=== PATIENT | male | born 1955 | race Caucasian/White ===

== ENCOUNTER 2017-11-22 17:56 | Observation (INO) | payer OTHER ==
[2017-11-22 18:21] LABS: BASO % 0.5 % (0-2.0); EOS % 2.5 % (0-4.5); HEMATOCRIT 40.4 % (35.4-49); LYMPH % 35.7 % (8-40); MCH 31.6 pg (25.7-33.7); MCHC 34.6 g/dl (32.0-35.9); MEAN CELL VOLUME 91.4 fl (80-96); MEAN PLT VOLUME 9.6 fl (7.5-11.1); MONO % 7.3 % (3.8-10.2); PLATELET COUNT 174 K/MM3 (134-434); RBC 4.42 M/mm3 (4.00-5.60); RDW 12.9 % (11.9-15.9); WHITE BLOOD COUNT 6.7 K/mm3 (4.0-10.8)
--- NOTE | 2017-11-22 18:35 | PDOC ---
History of Present Illness - General History Source: Patient Exam Limitations: No Limitations - History of Present Illness Initial Comments: 11/22/17 18:58 The patient is a 62 year old male with hypertension, hyperlipidemia, diabetes, atrial fibrillation s/p ablation who presents to the ED with complaints of chest pain that began this afternoon. The patient describes a mild, dull 3/4 in severity, intermittent chest-like pressure with associated neck pain. He denies any radiating pain, numbness, tingling or palpitations. He does, however, report increased weakness stating he has decreased exercise tolerance. Denies any LOC, headache, nausea, vomiting, diarrhea, cough, SOB, or urinary symptoms. Allergies: NKDA Social: Denies any drugs, alcohol, or tobacco use. PCP: Charlee Mcleod <Ethan Gaona - Last Filed: 11/22/17 19:29> <Andres Brandt - Last Filed: 11/25/17 14:23> - General Chief Complaint: Chest Pain Stated Complaint: CHEST DISCOMFORT Time Seen by Provider: 11/22/17 18:25 Past History <Ethan Gaona - Last Filed: 11/22/17 19:29> - Past Medical History Cardiac Disorders: Yes (AFIB ABLASION) COPD: No Dementia: No Diabetes: Yes HTN: Yes Hypercholesterolemia: Yes - Surgical History Abdominal Surgery: No - Suicide/Smoking/Psychosocial Hx Smoking Status: No Smoking History: Never smoked Have you smoked in the past 12 months: No Number of Cigarettes Smoked Daily: 0 Hx Alcohol Use: Yes Drug/Substance Use Hx: No Substance Use Type: Alcohol Hx Substance Use Treatment: No <Andres Brandt - Last Filed: 11/25/17 14:23> - Past Medical History Allergies/Adverse Reactions: Allergies Allergy/AdvReac Type Severity Reaction Status Date / Time No Known Allergies Allergy Verified 11/22/17 17:57 Home Medications: Ambulatory Orders Aspirin [ASA -] 325 mg PO DAILY 02/11/12 Atenolol [Tenormin -] 25 mg PO DAILY 02/11/12 Pravastatin Na [Pravachol] 40 mg PO DAILY 02/11/12 Alfuzosin HCl [Uroxatral] 10 mg PO DAILY 11/22/17 Allopurinol [Zyloprim -] 300 mg PO DAILY 11/22/17 Glipizide [Glipizide Xl] 2.5 mg PO DAILY 11/22/17 Metformin HCl [Metformin HCl ER] 1,000 mg PO BID 11/22/17 Valsartan [Diovan] 40 mg PO DAILY #30 tablet 11/23/17 Review of Systems - Review of Systems Able to Perform ROS?: Yes Comments:: 11/22/17 18:59 A complete review of 10 out of 10 review of systems is taken and is negative apart from what is previously mentioned below and in the HPI. All Other Systems: Reviewed and Negative <Ethan Gaona - Last Filed: 11/22/17 19:29> *Physical Exam - Vital Signs Last Vital Signs Temp Pulse Resp BP Pulse Ox 52 L 18 143/83 97 11/22/17 17:57 11/22/17 17:57 11/22/17 17:57 11/22/17 17:57 - Physical Exam Comments: 11/22/17 18:59 Vitals: Triage Vital signs reviewed General Appearance: no acute distress, well nourished well developed Neck: Supple;No Nuchal rigidity Chest Wall: Nontender Cardiac: Regular rate and rhythm, no murmurs, no rubs, no gallops, Lungs: Clear to auscultation bilateral, good air movement bilaterally, Abdomen: Soft, nondistended, normal bowel sounds, nontender to palpation Extremities: Full range of motion to all extremities, no cyanosis, clubbing, or edema Skin: Warm and dry, no rashes or lesions, no petechiae Neuro: AOX3; Cranial Nerves 2-12 grossly intact, Strength intact to all extremities, Sensation intact to all extremities Psych: normal mood, normal affect <Ethan Gaona - Last Filed: 11/22/17 19:29> - Vital Signs Last Vital Signs Temp Pulse Resp BP Pulse Ox 52 L 18 143/83 97 11/22/17 17:57 11/22/17 17:57 11/22/17 17:57 11/22/17 17:57 <Andres Brandt - Last Filed: 11/25/17 14:23> Heart Score/ECG Review - ECG Impressions Comment:: 11/22/17 18:49 EKG performed at 1804. Demonstrates sinus rhythm [address] elevations, no T- wave inversions, possible Q wave lead 3 Interpreted by me. <Andres Brandt - Last Filed: 11/25/17 14:23> ED Treatment Course - LABORATORY CBC & Chemistry Diagram: 11/22/17 18:06 11/22/17 18:06 - ADDITIONAL ORDERS Additional order review: Laboratory Results 11/22/17 11/22/17 18:06 18:06 Sodium 136 Potassium 4.0 Chloride 104 Carbon Dioxide 27 Anion Gap 5 L BUN 20 H Creatinine 1.1 Creat Clearance w eGFR > 60 Random Glucose 110 H Calcium 9.6 Total Bilirubin 0.6 AST 20 ALT 28 Alkaline Phosphatase 64 Creatine Kinase 111 Troponin I < 0.03 Total Protein 6.5 Albumin 4.1 11/22/17 18:06 RBC 4.42 MCV 91.4 MCHC 34.6 RDW 12.9 MPV 9.6 Neutrophils % 54.0 Lymphocytes % 35.7 D Monocytes % 7.3 Eosinophils % 2.5 Basophils % 0.5 D <Ethan Gaona - Last Filed: 11/22/17 19:29> - LABORATORY CBC & Chemistry Diagram: 11/23/17 07:25 11/23/17 07:25 - ADDITIONAL ORDERS Additional order review: 11/22/17 18:06 RBC 4.42 MCV 91.4 MCHC 34.6 RDW 12.9 MPV 9.6 Neutrophils % 54.0 Lymphocytes % 35.7 D Monocytes % 7.3 Eosinophils % 2.5 Basophils % 0.5 D - RADIOLOGY Radiology Studies Ordered: Category Date Time Status CXRPORT [CHEST X-RAY PORTABLE*] [RAD] Stat Radiology 11/22/17 18:14 Ordered <Andres Brandt - Last Filed: 11/25/17 14:23> Medical Decision Making - Medical Decision Making 11/22/17 19:29 Phone call placed to [facility] and call was returned promptly. Case discussed. v <Ethan Gaona - Last Filed: 11/22/17 19:29> - Medical Decision Making 11/22/17 18:50 Heart Score 4, moderate risk patient given age hypertension diabetes high cholesterol with moderately concerning story We'll check EKG labs patient will require admission and cardiology consultation for further management. Dr. Blackwood to follow up labs and admit patient. <Andres Brandt - Last Filed: 11/25/17 14:23> *DC/Admit/Observation/Transfer - Attestations Scribe Attestion: 11/22/17 19:00 Documentation prepared by Ethan Gaona, acting as internist medical doctor md for Andres Brandt MD. <Ethan Gaona - Last Filed: 11/22/17 19:29> <Andres Brandt - Last Filed: 11/25/17 14:23> Diagnosis at time of Disposition: Chest pain Qualifiers: Chest pain type: unspecified Qualified Code(s): R07.9 - Chest pain, unspecified - Discharge Dispostion Disposition: HOME Condition at time of disposition: Improved
[2017-11-22 18:40] LABS: ALBUMIN 4.1 g/dl (3.5-5.0); ALK PHOS 64 U/L (32-92); ANION GAP 5 (8-16); BILIRUBIN,TOTAL 0.6 mg/dl (0.2-1.0); BLOOD UREA NITROGEN 20 mg/dl (7-18); CALCIUM 9.6 mg/dl (8.4-10.2); CHLORIDE 104 mmol/L (98-107); CO2 27 mmol/L (22-28); CREATININE 1.1 mg/dl (0.6-1.3); GLUCOSE,RANDOM 110 mg/dl (74-106); SGOT/AST 20 U/L (10-42); SGPT/ALT 28 U/L (10-40); SODIUM 136 mmol/L (136-145); TOT PROT 6.5 g/dl (6.4-8.3)
--- NOTE | 2017-11-22 19:45 | PDOC ---
*Physical Exam - Vital Signs Last Vital Signs Temp Pulse Resp BP Pulse Ox 52 L 16 146/85 98 11/22/17 19:28 11/22/17 19:28 11/22/17 19:28 11/22/17 19:28 ED Treatment Course - LABORATORY CBC & Chemistry Diagram: 11/22/17 18:06 11/22/17 18:06 - ADDITIONAL ORDERS Additional order review: Laboratory Results 11/22/17 11/22/17 18:06 18:06 Sodium 136 Potassium 4.0 Chloride 104 Carbon Dioxide 27 Anion Gap 5 L BUN 20 H Creatinine 1.1 Creat Clearance w eGFR > 60 Random Glucose 110 H Calcium 9.6 Total Bilirubin 0.6 AST 20 ALT 28 Alkaline Phosphatase 64 Creatine Kinase 111 Troponin I < 0.03 Total Protein 6.5 Albumin 4.1 11/22/17 18:06 RBC 4.42 MCV 91.4 MCHC 34.6 RDW 12.9 MPV 9.6 Neutrophils % 54.0 Lymphocytes % 35.7 D Monocytes % 7.3 Eosinophils % 2.5 Basophils % 0.5 D Progress Note - Progress Note Progress Note: Care of this patient received from . Patient was admitted under observation status to [facility] with diagnosis of chest pain. Myocardial infarction will be ruled out and inpatient evaluation of chest pain started. *DC/Admit/Observation/Transfer Diagnosis at time of Disposition: Chest pain Qualifiers: Chest pain type: unspecified Qualified Code(s): R07.9 - Chest pain, unspecified - Discharge Dispostion Decision to Admit order: Yes - Referrals - Patient Instructions - Post Discharge Activity
--- NOTE | 2017-11-22 21:18 | HP ---
CHIEF COMPLAINT: Chest Pain, SOB, Dizziness, Weakness, Headache PCP: Dr. Charlee Mcleod Pharmaceutical Officer: Dr. Higgins, Dr. Downs HISTORY OF PRESENT ILLNESS: This is a pleasant 62 y/o man with a significant medical history of Afib (on Asa 325mg) s/p Ablation 5yrs ago, HTN, HLD, DM, BPH. Who presents to the ED with his and family for L-sided chest pain radiating to his neck, SOB, dizziness, weakness and MULLER while at rest this am. Patient reports having generalized weakness and dizziness for several days. He reports "not feeling right". Patient reports the CP to be sharp in quality, constant- now resolved. Patient denies fever, chills, belching, N/V/D, constipation, dysuria. Patient denies familial hx of Cardiac Disease ER course was notable for: (1) EKG- SB, No ST or TWI (2) Troponin I < 0.03 (3) Chest Xray- no acute pathology Recent Travel: None PAST MEDICAL HISTORY: See HPI PAST SURGICAL HISTORY: See HPI Social History: Smoking: None Alcohol: Socially Drugs: None Lives with spouse, Independent Family History: Mother- Lung Ca, age 73 Sister- Lung Ca, age 48 (Tobacco use) Umcle- Lung Ca Allergies No Known Allergies Allergy (Verified 11/22/17 17:57) HOME MEDICATIONS: Home Medications Medication Instructions Recorded Aspirin [ASA -] 325 mg PO DAILY 02/11/12 Atenolol [Tenormin -] 25 mg PO DAILY 02/11/12 Pravastatin Na [Pravachol] 40 mg PO DAILY 02/11/12 Alfuzosin HCl [Uroxatral] 10 mg PO DAILY 11/22/17 Allopurinol [Zyloprim -] 300 mg PO DAILY 11/22/17 Diltiazem HCl [Cartia Xt] 120 mg PO DAILY 11/22/17 Glipizide [Glipizide Xl] 2.5 mg PO DAILY 11/22/17 Metformin HCl [Metformin HCl ER] 1,000 mg PO BID 11/22/17 REVIEW OF SYSTEMS CONSTITUTIONAL: generalized weakness Absent: fever, chills, diaphoresis, malaise, loss of appetite, weight change HEENT: Absent: rhinorrhea, nasal congestion, throat pain, throat swelling, difficulty swallowing, mouth swelling, ear pain, eye pain, visual changes CARDIOVASCULAR: chest pain, lightheadedness Absent: syncope, palpitations, irregular heart rate, peripheral edema RESPIRATORY: cough, shortness of breath Absent: dyspnea with exertion, orthopnea, wheezing, stridor, hemoptysis GASTROINTESTINAL: Absent: abdominal pain, abdominal distension, nausea, vomiting, diarrhea, constipation, melena, hematochezia GENITOURINARY: Absent: dysuria, frequency, urgency, hesitancy, hematuria, flank pain, genital pain MUSCULOSKELETAL: Absent: myalgia, arthralgia, joint swelling, back pain, neck pain SKIN: Absent: rash, itching, pallor HEMATOLOGIC/IMMUNOLOGIC: Absent: easy bleeding, easy bruising, lymphadenopathy, frequent infections ENDOCRINE: Absent: unexplained weight gain, unexplained weight loss, heat intolerance, cold intolerance NEUROLOGIC: headache, dizziness Absent: focal weakness or paresthesias, unsteady gait, seizure, mental status changes, bladder or bowel incontinence PSYCHIATRIC: Absent: anxiety, depression, suicidal or homicidal ideation, hallucinations. PHYSICAL EXAMINATION Vital Signs - 24 hr 11/22/17 11/22/17 17:57 19:28 Pulse Rate 52 L Pulse Rate [ 52 L Left] Respiratory 18 16 Rate Blood Pressure 143/83 Blood Pressure 146/85 [Right] O2 Sat by Pulse 97 98 Oximetry (%) GENERAL: Awake, alert, and fully oriented, in no acute distress. HEAD: Normal with no signs of trauma. EYES: Pupils equal, round and reactive to light, extraocular movements intact, sclera anicteric, conjunctiva clear. No lid lag. EARS, NOSE, THROAT: Ears normal, nares patent, oropharynx clear without exudates. Moist mucous membranes. NECK: Normal range of motion, supple without lymphadenopathy, JVD, or masses. LUNGS: Breath sounds equal, clear to auscultation bilaterally. No wheezes, and no crackles. No accessory muscle use. HEART: Regular rate and rhythm, normal S1 and S2 without murmur, rub or gallop. ABDOMEN: Soft, nontender, not distended, normoactive bowel sounds, no guarding, no rebound, no masses. No hepatomegaly or splenomegaly. MUSCULOSKELETAL: Normal range of motion at all joints. No bony deformities or tenderness. No CVA tenderness. UPPER EXTREMITIES: 2+ pulses, warm, well-perfused. No cyanosis. No clubbing. No peripheral edema. LOWER EXTREMITIES: 2+ pulses, warm, well-perfused. No calf tenderness. No peripheral edema. NEUROLOGICAL: Cranial nerves II-XII intact. Normal speech. Normal gait. PSYCHIATRIC: Cooperative. Good eye contact. Appropriate mood and affect. SKIN: Warm, dry, normal turgor, no rashes or lesions noted, normal capillary refill. Laboratory Results - last 24 hr 11/22/17 11/22/17 11/22/17 18:06 18:06 18:06 WBC 6.7 RBC 4.42 Hgb 14.0 Hct 40.4 MCV 91.4 MCH 31.6 MCHC 34.6 RDW 12.9 Plt Count 174 MPV 9.6 Absolute Neuts (auto) 3.6 Neutrophils % 54.0 Lymphocytes % 35.7 D Monocytes % 7.3 Eosinophils % 2.5 Basophils % 0.5 D Sodium 136 Potassium 4.0 Chloride 104 Carbon Dioxide 27 Anion Gap 5 L BUN 20 H Creatinine 1.1 Creat Clearance w eGFR > 60 Random Glucose 110 H Calcium 9.6 Total Bilirubin 0.6 AST 20 ALT 28 Alkaline Phosphatase 64 Creatine Kinase 111 Troponin I < 0.03 Total Protein 6.5 Albumin 4.1 ASSESSMENT/PLAN: This is a 62 y/o man with a PMHx of: Afib (on Asa 325mg), s/p Ablation 5yrs ago , HTN, HLD, BPH. Placed in Tele Observation for Chest Pain r/o SC. Problems: 1. Chest Pain r/o SC 2. Symptomatic Bradycardia 3. Afib 4. HTN 5. HLD 6. BPH Plan: 1. Chest Pain - r/o SC - Continue cardiac monitoring - Serial Enzymes - Appreciate Cardiology consult - Echo in am - Consider Stress Test - CBC, BMP, Lipid Profile, Mg, Phos, HgbA1c in am - Continue Asa - Hold BB secondary to bradycardia 2. Bradycardia - Likely secondary to BB and CCB causing slow cardiac conduction - Will hold meds for now and defer to Cardiology - Continue cardiac monitoring - Problem List - Problem (1) Chest pain Code(s): R07.9 - CHEST PAIN, UNSPECIFIED Qualifiers: Chest pain type: unspecified Qualified Code(s): R07.9 - Chest pain, unspecified (2) Weakness Code(s): R53.1 - WEAKNESS (3) Dizziness Code(s): R42 - DIZZINESS AND GIDDINESS (4) HTN (hypertension) Code(s): I10 - ESSENTIAL (PRIMARY) HYPERTENSION (5) HLD (hyperlipidemia) Code(s): E78.5 - HYPERLIPIDEMIA, UNSPECIFIED (6) A-fib Code(s): I48.91 - UNSPECIFIED ATRIAL FIBRILLATION (7) Diabetes mellitus Code(s): E11.9 - TYPE 2 DIABETES MELLITUS WITHOUT COMPLICATIONS Visit type - Emergency Visit Emergency Visit: Yes ED Registration Date: 11/22/17 Care time: The patient presented to the Emergency Department on the above date and was hospitalized for further evaluation of their emergent condition. - New Patient This patient is new to me today: Yes Date on this admission: 11/22/17 - Critical Care Critical Care patient: No Hospitalist Screening - Colonoscopy Questionnaire Colonoscopy Questionnaire: Colonoscopy Questionnaire - Patient: 50 - 75 years old and never had a screening colonoscopy: No History of colon or rectal polyps, or CA: No History of IBD, Crohn's disease or UC: No History of abdominal radiation therapy as a child: No - Relative: 1 with colon or rectal CA, or polyps at age 60 or younger: No Colon or rectal CA diagnosed at age 45 or younger: No
[2017-11-22 21:44] VITALS: BMI 35.0
[2017-11-22 22:24] LABS: URINE APPEARANCE Clear; URINE BILIRUBIN Negative (NEGATIVE); URINE GLUCOSE (UA) Negative (NEGATIVE); URINE KETONE Negative (NEGATIVE); URINE LEUK ESTERASE Negative (NEGATIVE); URINE NITRITE Negative (NEGATIVE); URINE PROTEIN Negative (NEGATIVE); URINE UROBILINOGEN 0.2 (0.2-1.0)
[2017-11-22 22:25] LABS: URINE COLOR YELLOW
[2017-11-23 01:21] LABS: INR 0.99 (0.82-1.09); PROTHROMBIN TIME (PATIENT) 11.2 SEC (9.7-13.0)
[2017-11-23 01:36] LABS: MAGNESIUM 1.8 mg/dL (1.8-2.4); PHOSPHOROUS 3.6 mg/dL (2.5-4.9)
[2017-11-23] MEDS ORDERED: glipiZIDE-XL 2.5 MG TAB.ER.24 PO SCH (07:00)
--- NOTE | 2017-11-23 07:44 | PN ---
Physical Exam: SUBJECTIVE: Patient seen and examined, reports generalized weakness after eating , denies any chest pain or shortness of breath OBJECTIVE: patient is a 62 y/o male with a significant medical history of Afib (on Asa 325mg) s/p Ablation 5yrs ago, HTN, HLD, DM, BPH. patient was admitted for an emergency department observation telemetry for chest pain rule out ACS Vital Signs Period Temp Pulse Resp BP Sys/[place] Pulse Ox Last 24 Hr 97.6 F-97.7 F 50-55 16-19 129-149/63-85 97-98 GENERAL: The patient is awake, alert, and fully oriented, in no acute distress. HEAD: Normal with no signs of trauma. EYES: PERRL, extraocular movements intact, sclera anicteric, conjunctiva clear. No ptosis. ENT: Ears normal, nares patent, oropharynx clear without exudates, moist mucous membranes. NECK: Trachea midline, full range of motion, supple. LUNGS: Breath sounds equal, clear to auscultation bilaterally, no wheezes, no crackles, no accessory muscle use. HEART: Regular rate and rhythm, S1, S2 without murmur, rub or gallop. ABDOMEN: Soft, nontender, nondistended, normoactive bowel sounds, no guarding, no rebound, no hepatosplenomegaly, no masses. EXTREMITIES: 2+ pulses, warm, well-perfused, no edema. NEUROLOGICAL: Cranial nerves II through XII grossly intact. Normal speech, gait not observed. PSYCH: Normal mood, normal affect. SKIN: Warm, dry, normal turgor, no rashes or lesions noted Laboratory Results - last 24 hr 11/22/17 11/22/17 11/22/17 18:06 18:06 18:06 WBC 6.7 RBC 4.42 Hgb 14.0 Hct 40.4 MCV 91.4 MCH 31.6 MCHC 34.6 RDW 12.9 Plt Count 174 MPV 9.6 Absolute Neuts (auto) 3.6 Neutrophils % 54.0 Lymphocytes % 35.7 D Monocytes % 7.3 Eosinophils % 2.5 Basophils % 0.5 D PT with INR INR Sodium 136 Potassium 4.0 Chloride 104 Carbon Dioxide 27 Anion Gap 5 L BUN 20 H Creatinine 1.1 Creat Clearance w eGFR > 60 POC Glucometer Random Glucose 110 H Calcium 9.6 Phosphorus Magnesium Total Bilirubin 0.6 AST 20 ALT 28 Alkaline Phosphatase 64 Creatine Kinase 111 Troponin I < 0.03 Total Protein 6.5 Albumin 4.1 Urine Color Urine Appearance Urine pH Ur Specific [place] Urine Protein Urine Glucose (UA) Urine Ketones Urine Blood Urine Nitrite Urine Bilirubin Urine Urobilinogen Ur Leukocyte Esterase 11/22/17 11/23/17 11/23/17 22:20 00:00 00:00 WBC RBC Hgb Hct MCV MCH MCHC RDW Plt Count MPV Absolute Neuts (auto) Neutrophils % Lymphocytes % Monocytes % Eosinophils % Basophils % PT with INR 11.20 INR 0.99 Sodium Potassium Chloride Carbon Dioxide Anion Gap BUN Creatinine Creat Clearance w eGFR POC Glucometer Random Glucose Calcium Phosphorus Magnesium Total Bilirubin AST ALT Alkaline Phosphatase Creatine Kinase Troponin I Cancelled Total Protein Albumin Urine Color Yellow Urine Appearance Clear Urine pH 6.0 Ur Specific [place] 1.020 Urine Protein Negative Urine Glucose (UA) Negative Urine Ketones Negative Urine Blood Negative Urine Nitrite Negative Urine Bilirubin Negative Urine Urobilinogen 0.2 Ur Leukocyte Esterase Negative 11/23/17 11/23/17 00:00 06:11 WBC RBC Hgb Hct MCV MCH MCHC RDW Plt Count MPV Absolute Neuts (auto) Neutrophils % Lymphocytes % Monocytes % Eosinophils % Basophils % PT with INR INR Sodium Potassium Chloride Carbon Dioxide Anion Gap BUN Creatinine Creat Clearance w eGFR POC Glucometer 124 Random Glucose Calcium Phosphorus 3.6 Magnesium 1.8 Total Bilirubin AST ALT Alkaline Phosphatase Creatine Kinase Troponin I < 0.02 Total Protein Albumin Urine Color Urine Appearance Urine pH Ur Specific [place] Urine Protein Urine Glucose (UA) Urine Ketones Urine Blood Urine Nitrite Urine Bilirubin Urine Urobilinogen Ur Leukocyte Esterase Active Medications Generic Name Dose Route Start Last Admin Trade Name Freq PRN Reason Stop Dose Admin Allopurinol 300 mg 11/23/17 10:00 Zyloprim - PO DAILY NURYS Aspirin 325 mg 11/23/17 10:00 Asa - PO DAILY NURYS Atorvastatin Calcium 10 mg 11/23/17 22:00 Lipitor - PO HS NURYS Glipizide 2.5 mg 11/23/17 07:00 11/23/17 06:49 Glucotrol Xl - PO 2.5 mg ACBK NURYS Administration Metformin HCl 1,000 mg 11/22/17 22:00 11/23/17 06:49 Glucophage Xr - PO 1,000 mg BIDAC NURYS Administration Tamsulosin HCl 0.4 mg 11/23/17 08:30 Flomax - PO DAILY@0830 [facility] ASSESSMENT/PLAN: 1. cardiovascular Chest Pain r/o acs - troponin x 3 wnl - pending echo - appreciate cardiology input bradycardia - continue to hold cardizem and atenolol - continous cardiac monitoring 2) bph - continue flomax 3) endo niddm - continue metformin and glipizide f/e/n - low sodium diabetic diet - replete electrolytes prn ppx - oob - pepcid dispo: pt requires observation telemetry admission -
[2017-11-23 08:10] LABS: BASO % 0.5 % (0-2.0); EOS % 2.9 % (0-4.5); HEMATOCRIT 41.3 % (35.4-49); HEMOGLOBIN 14.1 GM/dl (11.7-16.9); LYMPH % 33.3 % (8-40); MCH 31.3 pg (25.7-33.7); MCHC 34.2 g/dl (32.0-35.9); MEAN CELL VOLUME 91.5 fl (80-96); MEAN PLT VOLUME 10.4 fl (7.5-11.1); MONO % 8.6 % (3.8-10.2); NEUT % 54.7 % (42.8-82.8); PLATELET COUNT 165 K/MM3 (134-434); RBC 4.51 M/mm3 (4.00-5.60); RDW 12.5 % (11.9-15.9); WHITE BLOOD COUNT 4.8 K/mm3 (4.0-10.8)
[2017-11-23] MEDS ORDERED: TAMSULOSIN HCL 0.4 MG CAP.ER.24H (FP) PO SCH (08:30)
[2017-11-23 09:31] LABS: ANION GAP 10 (8-16); BLOOD UREA NITROGEN 17 mg/dl (7-18); CALCIUM 9.1 mg/dl (8.4-10.2); CHLORIDE 104 mmol/L (98-107); CO2 24 mmol/L (22-28); GLUCOSE,RANDOM 133 mg/dl (74-106); POTASSIUM 4.1 mmol/L (3.5-5.1); SODIUM 138 mmol/L (136-145)
[2017-11-23 09:41] LABS: CHOLESTEROL 144 mg/dl; HDL CHOLESTEROL 49 mg/dl (29-89); LDL CHOLESTEROL (ONLY DFH) 74 mg/dl; TRIGLYCERIDES 103 mg/dl (35-160)
[2017-11-23] MEDS ORDERED: ALLOPURINOL 300 MG TABLET (FP) PO SCH (10:00)
[2017-11-23] MEDS ORDERED: ASPIRIN 325 MG TABLET PO SCH (10:00)
--- NOTE | 2017-11-23 13:25 | EKG ---
Test Reason : Blood Pressure : / mmHG Vent. Rate : 048 BPM Atrial Rate : 048 BPM P-R Int : 192 ms QRS Dur : 090 ms QT Int : 466 ms P-R-T Axes : 063 011 026 degrees QTc Int : 416 ms SINUS BRADYCARDIA OTHERWISE NORMAL ECG NO PREVIOUS ECGS AVAILABLE Confirmed by Suleman Bee ([id number]) on 11/23/2017 1:25:13 PM Referred By: JOANA Confirmed By:Suleman Bee
--- NOTE | 2017-11-23 13:52 | CON.CARD ---
Consult Consult Specialty:: Cardiology Referred by:: Hospitalist Reason for Consultation:: Cardiac evaluation - History of Present Illness Chief Complaint: Chest discomfort and fatigue History of Present Illness: Patient is a 62 year old male with underlying history of PAF s/p ablation at [facility] (Dr. Yefri El) 5 years ago, HTN, hypercholesterolemia, DM and BPH who presented with chest discomfort, shortness of breath and weakness and fatigue. His controls designer has been Dr. Maximiliano Higgins, but he has not seen him for over a year due to insurance coverage. He plans to see Dr. Yefri El upon discharge. Currently he appears comfortable. Cardiac enzymes are negative. He denies paroxysmal nocturnal dyspnea or orthopnea. He denies fever or chills. He denies nausea, vomiting, diarrhea or abdominal pain. He denies headache. - History Source History Provided By: Patient, Medical Record Limitations to Obtaining History: No Limitations - Past Medical History Cardio/Vascular: Yes: AFIB, HTN, Hyperlipdemia Endocrine: Yes: Diabetes Mellitus - Past Surgical History Additional Surgical History: AF ablation - Alcohol/Substance Use Hx Alcohol Use: Yes (OCCASIONAL) - Smoking History Smoking history: Never smoked Have you smoked in the past 12 months: No Aproximately how many cigarettes per day: 0 Home Medications - Allergies Allergies/Adverse Reactions: Allergies Allergy/AdvReac Type Severity Reaction Status Date / Time No Known Allergies Allergy Verified 11/22/17 17:57 - Home Medications Home Medications: Ambulatory Orders Aspirin [ASA -] 325 mg PO DAILY 02/11/12 Atenolol [Tenormin -] 25 mg PO DAILY 02/11/12 Pravastatin Na [Pravachol] 40 mg PO DAILY 02/11/12 Alfuzosin HCl [Uroxatral] 10 mg PO DAILY 11/22/17 Allopurinol [Zyloprim -] 300 mg PO DAILY 11/22/17 Diltiazem HCl [Cartia Xt] 120 mg PO DAILY 11/22/17 Glipizide [Glipizide Xl] 2.5 mg PO DAILY 11/22/17 Metformin HCl [Metformin HCl ER] 1,000 mg PO BID 11/22/17 Family Disease History - Family Disease History Family Disease History: Heart Disease: Grandparent Other Family History: History of DM Review of Systems - Review of Systems Constitutional: reports: Weakness. denies: Chills, Fever Cardiovascular: reports: Chest Pain, Shortness of Breath. denies: Palpitations Respiratory: reports: SOB. denies: Cough, Hemoptysis, Orthopnea, PND, SOB on Exertion, Wheezing Gastrointestinal: denies: Abdominal Pain, Diarrhea, Melena, Nausea, Rectal Bleeding, Vomiting Genitourinary: denies: Dysuria, Hematuria Musculoskeletal: denies: Back Pain, Joint Pain Neurological: reports: Dizziness, Weakness. denies: Headache, Seizure, Syncope Vital Signs: Vital Signs Temperature 97.8 F 11/23/17 09:49 Pulse Rate 54 L 11/23/17 09:49 Respiratory Rate 18 11/23/17 09:49 Blood Pressure 126/68 11/23/17 09:49 O2 Sat by Pulse Oximetry (%) 97 11/23/17 06:25 Constitutional: Yes: Well Nourished Eyes: Yes: PERRL HENT: Yes: Atraumatic Neck: Yes: Supple Respiratory: Yes: CTA Bilaterally Gastrointestinal: Yes: Normal Bowel Sounds, Soft. No: Tenderness Cardiovascular: Yes: Regular Rate and Rhythm JVD: No Carotid Bruit: No PMI: Non-Displaced Heart Sounds: Yes: S1, S2. No: Gallop Murmur: No: Systolic Murmur, Diastolic Murmur Edema: No - Other Data Labs, Other Data: CBC, BMP 11/23/17 07:25 11/23/17 07:25 INR, PTT INR 0.99 (0.82-1.09) 11/23/17 00:00 Troponin, BNP 11/22/17 11/23/17 11/23/17 18:06 00:00 00:00 Troponin I < 0.03 Cancelled < 0.02 Laboratory Results - last 24 hr 11/22/17 11/22/17 11/22/17 18:06 18:06 18:06 WBC 6.7 RBC 4.42 Hgb 14.0 Hct 40.4 MCV 91.4 MCH 31.6 MCHC 34.6 RDW 12.9 Plt Count 174 MPV 9.6 Absolute Neuts (auto) 3.6 Neutrophils % 54.0 Lymphocytes % 35.7 D Monocytes % 7.3 Eosinophils % 2.5 Basophils % 0.5 D PT with INR INR Sodium 136 Potassium 4.0 Chloride 104 Carbon Dioxide 27 Anion Gap 5 L BUN 20 H Creatinine 1.1 Creat Clearance w eGFR > 60 POC Glucometer Random Glucose 110 H Hemoglobin A1c % Calcium 9.6 Phosphorus Magnesium Total Bilirubin 0.6 AST 20 ALT 28 Alkaline Phosphatase 64 Creatine Kinase 111 Troponin I < 0.03 Total Protein 6.5 Albumin 4.1 Triglycerides Cholesterol Total LDL Cholesterol HDL Cholesterol Urine Color Urine Appearance Urine pH Ur Specific [place] Urine Protein Urine Glucose (UA) Urine Ketones Urine Blood Urine Nitrite Urine Bilirubin Urine Urobilinogen Ur Leukocyte Esterase 11/22/17 11/23/17 11/23/17 22:20 00:00 00:00 WBC RBC Hgb Hct MCV MCH MCHC RDW Plt Count MPV Absolute Neuts (auto) Neutrophils % Lymphocytes % Monocytes % Eosinophils % Basophils % PT with INR 11.20 INR 0.99 Sodium Potassium Chloride Carbon Dioxide Anion Gap BUN Creatinine Creat Clearance w eGFR POC Glucometer Random Glucose Hemoglobin A1c % Calcium Phosphorus Magnesium Total Bilirubin AST ALT Alkaline Phosphatase Creatine Kinase Troponin I Cancelled Total Protein Albumin Triglycerides Cholesterol Total LDL Cholesterol HDL Cholesterol Urine Color Yellow Urine Appearance Clear Urine pH 6.0 Ur Specific [place] 1.020 Urine Protein Negative Urine Glucose (UA) Negative Urine Ketones Negative Urine Blood Negative Urine Nitrite Negative Urine Bilirubin Negative Urine Urobilinogen 0.2 Ur Leukocyte Esterase Negative 11/23/17 11/23/17 11/23/17 00:00 06:11 07:20 WBC RBC Hgb Hct MCV MCH MCHC RDW Plt Count MPV Absolute Neuts (auto) Neutrophils % Lymphocytes % Monocytes % Eosinophils % Basophils % PT with INR INR Sodium Potassium Chloride Carbon Dioxide Anion Gap BUN Creatinine Creat Clearance w eGFR POC Glucometer 124 Random Glucose Hemoglobin A1c % Calcium Phosphorus 3.6 Magnesium 1.8 1.8 Total Bilirubin AST ALT Alkaline Phosphatase Creatine Kinase Troponin I < 0.02 Total Protein Albumin Triglycerides Cholesterol Total LDL Cholesterol HDL Cholesterol Urine Color Urine Appearance Urine pH Ur Specific [place] Urine Protein Urine Glucose (UA) Urine Ketones Urine Blood Urine Nitrite Urine Bilirubin Urine Urobilinogen Ur Leukocyte Esterase 11/23/17 11/23/17 11/23/17 07:25 07:25 07:25 WBC 4.8 RBC 4.51 Hgb 14.1 Hct 41.3 MCV 91.5 MCH 31.3 MCHC 34.2 RDW 12.5 Plt Count 165 MPV 10.4 Absolute Neuts (auto) 2.7 Neutrophils % 54.7 Lymphocytes % 33.3 Monocytes % 8.6 Eosinophils % 2.9 Basophils % 0.5 PT with INR INR Sodium 138 Potassium 4.1 Chloride 104 Carbon Dioxide 24 Anion Gap 10 BUN 17 Creatinine 1.0 Creat Clearance w eGFR > 60 POC Glucometer Random Glucose 133 H D Hemoglobin A1c % 6.6 H Calcium 9.1 Phosphorus Magnesium Total Bilirubin AST ALT Alkaline Phosphatase Creatine Kinase Troponin I Total Protein Albumin Triglycerides Cholesterol Total LDL Cholesterol HDL Cholesterol Urine Color Urine Appearance Urine pH Ur Specific [place] Urine Protein Urine Glucose (UA) Urine Ketones Urine Blood Urine Nitrite Urine Bilirubin Urine Urobilinogen Ur Leukocyte Esterase 11/23/17 11/23/17 07:25 07:25 WBC RBC Hgb Hct MCV MCH MCHC RDW Plt Count MPV Absolute Neuts (auto) Neutrophils % Lymphocytes % Monocytes % Eosinophils % Basophils % PT with INR INR Sodium Potassium Chloride Carbon Dioxide Anion Gap BUN Creatinine Creat Clearance w eGFR POC Glucometer Random Glucose Hemoglobin A1c % Calcium Phosphorus Magnesium Total Bilirubin AST ALT Alkaline Phosphatase Creatine Kinase Troponin I < 0.03 Total Protein Albumin Triglycerides 103 Cholesterol 144 Total LDL Cholesterol 74 HDL Cholesterol 49 Urine Color Urine Appearance Urine pH Ur Specific [place] Urine Protein Urine Glucose (UA) Urine Ketones Urine Blood Urine Nitrite Urine Bilirubin Urine Urobilinogen Ur Leukocyte Esterase Problem List - Problems (1) A-fib Code(s): I48.91 - UNSPECIFIED ATRIAL FIBRILLATION Qualifiers: Atrial fibrillation type: paroxysmal Qualified Code(s): I48.0 - Paroxysmal atrial fibrillation (2) Chest pain Code(s): R07.9 - CHEST PAIN, UNSPECIFIED Qualifiers: Chest pain type: unspecified Qualified Code(s): R07.9 - Chest pain, unspecified (3) Diabetes mellitus Code(s): E11.9 - TYPE 2 DIABETES MELLITUS WITHOUT COMPLICATIONS Qualifiers: Diabetes mellitus type: type 2 Diabetes mellitus care home insulin use: without care home use Diabetes mellitus complication status: without complication Qualified Code(s): E11.9 - Type 2 diabetes mellitus without complications (4) Dizziness Code(s): R42 - DIZZINESS AND GIDDINESS (5) HLD (hyperlipidemia) Code(s): E78.5 - HYPERLIPIDEMIA, UNSPECIFIED Qualifiers: Hyperlipidemia type: pure hypercholesterolemia Qualified Code(s): E78.00 - Pure hypercholesterolemia, unspecified; E78.0 - Pure hypercholesterolemia (6) HTN (hypertension) Code(s): I10 - ESSENTIAL (PRIMARY) HYPERTENSION Qualifiers: Hypertension type: essential hypertension Qualified Code(s): I10 - Essential (primary) hypertension (7) Weakness Code(s): R53.1 - WEAKNESS Assessment/Plan 1. Chest pain syndrome rule out CAD 2. HTN 3. Hypercholesterolemia 4. DM 5. PAF remain in sinus after AF ablation 5 years ago PLAN: 1. Continue ASA 81 mg once a day 2. Continue Atenolol but stop Cardizem and add ACEI or ARB (may consider Valsartan 80 mg once a day) 3. Continue statin therapy 4. Transthoracic echocardiography to assess LV/RV and valvular function 5. Nuclear MPI can be done as outpatient. Patient plans to follow up with Dr. Yefri lE (Cardiology) at [facility] Further plans are to follow Jonas Whittington MD
[2017-11-23] MEDS ORDERED: VALSARTAN 40 MG TABLET (FP) PO SCH (14:00)
[2017-11-23 14:25] VITALS: BP 133/73; PULSE 55; TEMP 98
[2017-11-23] MEDS ORDERED: ATORVASTATIN CA 10 MG TABLET (FP) PO SCH (22:00)
[2017-11-23] MEDS ORDERED: FAMOTIDINE 20 MG TABLET PO SCH (22:00)
[2017-11-24] MEDS ORDERED: ATENOLOL 25 MG TABLET (FP) PO SCH (10:00)
--- NOTE | 2017-11-24 13:09 | EKG ---
Test Reason : Blood Pressure : / mmHG Vent. Rate : 054 BPM Atrial Rate : 054 BPM P-R Int : 192 ms QRS Dur : 094 ms QT Int : 438 ms P-R-T Axes : 051 015 039 degrees QTc Int : 415 ms SINUS BRADYCARDIA OTHERWISE NORMAL ECG NO PREVIOUS ECGS AVAILABLE Confirmed by HEATHER ZHAO, ASHLIE ([id number]) on 11/24/2017 1:09:23 PM Referred By: ANTONIO Confirmed By:ASHLIE ROMERO MD
== END 2017-11-23 15:55 | disposition home or self-care (01) ==
LOC: FER 17:56 → FM/S 21:04
PROVIDERS: ADMIT Internal Medicine; ATTEND Nurse Practitioner Family
DX: R07.9 Chest pain, unspecified (principal); I10 Essential (primary) hypertension; I48.0 Paroxysmal atrial fibrillation; E78.5 Hyperlipidemia, unspecified; E11.9 Type 2 diabetes mellitus without complications; N40.0 Benign prostatic hyperplasia without lower urinary tract symptoms; R00.1 Bradycardia, unspecified; R53.1 Weakness; R42 Dizziness and giddiness; Z79.82 Long term (current) use of aspirin; Z79.84 Long term (current) use of oral hypoglycemic drugs
CPT/HCPCS: 36415; 71045-TC-FY; 80048; 80053; 80061; 81003; 82550; 82962; 83036; 83735; 84100; 84484; 85025; 85610; 93005; 93306-TC; 99285-25; G0378

== ENCOUNTER 2021-12-09 15:03 | Observation (INO) | payer OTHER ==
[2021-12-09 15:19] VITALS: BMI 35.3
[2021-12-09 16:44] LABS: INR 0.99 (0.83-1.09); PROTHROMBIN TIME (PATIENT) 11.4 SEC (9.7-13.0)
[2021-12-09 16:47] LABS: ACTIVATED PTT 29.5 SECONDS (25.2-36.5)
[2021-12-09 17:02] LABS: ALBUMIN 4.1 g/dl (3.4-5.0); BILIRUBIN,TOTAL 1.1 mg/dl (0.2-1); CALCIUM 9.7 mg/dl (8.5-10); CREATININE 1.5 mg/dl (0.55-1.3); TOT PROT 6.6 g/dl (6.4-8.2)
[2021-12-09 17:03] LABS: HEMATOCRIT 38.3 % (35.4-49); HEMOGLOBIN 13.9 G/dL (11.7-16.9); MCH 33.4 pg (25.7-33.7); MCHC 36.3 g/dl (32.0-35.9); MEAN CELL VOLUME 92.1 fl (80-96); MEAN PLT VOLUME 10.1 fl (7.5-11.1); PLATELET COUNT 157.3 10^3/uL (134-434); RBC 4.16 10^6/uL (4.00-5.60); RDW 13.5 % (11.9-15.9); WHITE BLOOD COUNT 6.4 10^3/uL (4.0-10.8)
[2021-12-09] MEDS ORDERED: POLYETHYLENE GLYCOL (HEALTHYLAX) 3350 17 GM PACKET PO PRN (19:23)
[2021-12-09] MEDS ORDERED: ACETAMINOPHEN 325 MG TABLET (FP) PO PRN (19:23)
[2021-12-09] MEDS ORDERED: SODIUM CHLORIDE 1,000 ML IV SCH (19:30)
[2021-12-09 20:48] LABS: CREATININE, URINE RANDOM 155.7 mg/dL
[2021-12-09] MEDS: INSULIN SLIDING SCALE (NOVOLOG) 1 VIAL SQ SCH (21:53)
[2021-12-09] MEDS ORDERED: ATORVASTATIN CA 10 MG TABLET (FP) PO SCH (22:00)
[2021-12-09] MEDS ORDERED: PATIENT'S OWN MEDICATION (NON-FORMULARY) (Metformin Hcl [Metformin Er Gastric] 1,000 MG Ta PO SCH (22:00)
[2021-12-10] MEDS: INSULIN SLIDING SCALE (NOVOLOG) 1 VIAL SQ SCH ×2 (06:55→10:33)
[2021-12-10] MEDS ORDERED: glipiZIDE-XL 2.5 MG TAB.ER.24 PO SCH (07:00)
[2021-12-10] MEDS ORDERED: PROPOFOL 20 ML ONE ×4 (07:32)
[2021-12-10 09:18] VITALS: BP 146/83; PULSE 59; TEMP 98.5
[2021-12-10 09:32] LABS: CALCIUM 9.2 mg/dl (8.5-10); CO2 27 mmol/L (21-32); CREATININE 1.1 mg/dl (0.55-1.3); GLUCOSE,RANDOM 170 mg/dl (74-106); MAGNESIUM 1.6 mg/dL (1.8-2.4); SODIUM 136 mmol/L (136-145)
[2021-12-10 09:43] LABS: BASO % 0.5 % (0-2.0); EOS % 2.7 % (0-4.5); HEMATOCRIT 40.2 % (35.4-49); HEMOGLOBIN 13.7 GM/dL (11.7-16.9); LYMPH % 27.6 % (8-40); MCH 31.4 pg (25.7-33.7); MEAN CELL VOLUME 92.3 fl (80-96); MEAN PLT VOLUME 10.5 fl (7.5-11.1); MONO % 9.6 % (3.8-10.2); NEUT % 59.6 % (42.8-82.8); PLATELET COUNT 153 10^3/uL (134-434); RBC 4.36 M/mm3 (4.00-5.60); RDW 13.4 % (11.9-15.9); WHITE BLOOD COUNT 5.8 K/mm3 (4.0-10.0)
[2021-12-10] MEDS ORDERED: CYANOCOBALAMIN 1,000 MCG TABLET (FP) PO SCH (10:00)
[2021-12-10] MEDS ORDERED: ALLOPURINOL 300 MG TABLET (FP) PO SCH (10:00)
[2021-12-10] MEDS ORDERED: ATENOLOL 25 MG TABLET (FP) PO SCH (10:00)
[2021-12-10] MEDS ORDERED: ASPIRIN 81 MG CHEWABLE TABLETS PO SCH (10:00)
[2021-12-10 12:35] LABS: CHLORIDE 106 mmol/L (98-107)
[2021-12-10] MEDS ORDERED: ATORVASTATIN CA 40 MG TABLET (FP) PO SCH (22:00)
== END 2021-12-10 11:44 | disposition home or self-care (01) ==
LOC: FER 15:03 → INTOOBSV 18:22 → FM/S 18:22
PROVIDERS: ADMIT Internal Medicine
PROC: 3E0337Z Introduction of Electrolytic and Water Balance Substance into Peripheral Vein, Percutaneous Approach (ICD-10-PCS; principal; 2021-12-09)
DX: I48.91 Unspecified atrial fibrillation (principal); E78.5 Hyperlipidemia, unspecified; E11.9 Type 2 diabetes mellitus without complications; I10 Essential (primary) hypertension; K21.9 Gastro-esophageal reflux disease without esophagitis; M10.9 Gout, unspecified; E66.9 Obesity, unspecified; Z68.35 Body mass index [BMI] 35.0-35.9, adult; Z86.39 Personal history of other endocrine, nutritional and metabolic disease
CPT/HCPCS: 36415; 71046-TC-FY; 80048; 80053; 80061; 81003; 82570; 82962; 83036; 83735; 84156; 84300; 84439; 84443; 84484; 85025; 85027; 85610; 85730; 93005; 93010; 96360; 99285-25; C9803-CS; G0378; U0003; U0005